=== PATIENT | male | born 1985 | race Caucasian/White ===

== ENCOUNTER 2024-04-21 20:04 | Emergency (ER) | payer MEDICARE, MEDICAID, SELFPAY ==
[2024-04-21 20:04] VITALS: BP 142/93; PULSE 95; RESP 18; TEMP 36.8; O2SAT 98; BMI 41.0
--- NOTE | 2024-04-21 20:05 | ED_ITS ---
<Statement entered by Hans Krause MD - 04/21/24 21:47> I was consulted by the [facility], and we discussed the complexity of the problems being addressed. I approved the treatment and management plan for this patient's care in the emergency department, thus performing a substantive portion of the medical decision making. Patient has abscess that was drained at bedside by [facility], he was given dalbavancin appropriately, he has hide mild hyponatremia of undetermined etiology that is not need inpatient workup at this time and he will follow-up on an outpatient basis. Hans Krause MD Discharge Plan Disposition Patient Disposition: Home, Self-Care Condition: Good Prescriptions Prescriptions: No Action citalopram 20 mg tablet 20 mg PO DAILY olanzapine 10 mg tablet 10 mg PO QHS risperidone [Risperdal] 3 mg tablet 3 mg PO BID doxycycline hyclate 100 MG capsule 100 mg PO BID Qty: 20 0RF mupirocin 22 GM ointment 1 applicatio TP BID Qty: 1 0RF Referrals Follow up/Referrals: Keyur Lockett DO [Staff Physician] - See instructions (Follow-up incision and drainage left proximal thigh) Activity Restrictions/Add. Instructions Additional Instructions/Restrictions: Please change her packing once a day. Please call tomorrow to make an appointment with Dr. Lockett for wound care follow-up. You may shower and bathe as normal. For any worsening signs or symptoms follow-up with your PCP return t o the ER as needed. Clinical Impressions Clinical Impression: Abscess of left thigh Instructions Patient Instructions: DI for Skin Abscess Print Language Print Language: Czech Discharge ED Provider: Hans Krause General Adult HPI General Chief complaint: Skin/Abscess/Foreign Body Stated complaint: spider bite Time Seen by Provider: 04/21/24 20:05 History of Present Illness HPI narrative: Patient presents for evaluation of a left proximal thigh abscess. Patient states that he does not know how it happened but he woke up with pain in the left side of his hip today. It does not bother him except when he lays on it . He denies fever chills hemoptysis hematochezia melena nausea vomiting diarrhea. He has full range of motion. Related Data Home Medications ?Medication ?Instructions ?Recorded ?Confirmed citalopram 20 mg tablet 20 mg PO DAILY 07/29/18 07/29/18 olanzapine 10 mg tablet 10 mg PO QHS 07/29/18 07/29/18 risperidone 3 mg tablet (Risperdal) 3 mg PO BID 07/29/18 07/29/18 Previous Rx's ?Medication ?Instructions ?Recorded doxycycline hyclate 100 mg capsule 100 mg PO BID #20 caps 07/25/18 mupirocin 2 % topical ointment 1 applicatio TP BID #1 tube 07/25/18 Allergies Allergy/AdvReac Type Severity Reaction Status Date / Time haloperidol (From Haldol) Allergy Verified 07/29/18 10:11 hydroxyzine (From Vistaril) Allergy Verified 07/29/18 10:11 lithium Allergy Verified 07/29/18 10:11 morphine Allergy Verified 07/29/18 10:11 quetiapine (From Seroquel) Allergy Verified 07/29/18 10:11 [facility] Disclaimer: The information contained in this section may have been updated after the patient was seen, as this information can be updated by other users. Social History Smoking Status: Current every day smoker tobacco type: cigarettes packs per day: 1 alcohol intake: never current occupational status: disabled Travel in the last 8 weeks: None Other Medical History Have you received the Flu Vaccine for this season: No Have you received the Pneumonia Vaccine: Yes ROS Obtained: Yes Systems reviewed as appropriate & no additional complaints except as documented Physical Exam General General appearance: alert and in no apparent distress Respiratory Respiratory exam: Present normal lung sounds bilaterally Cardiovascular Cardiovascular exam: Present regular rate Extremities Exam Extremities exam: Present full ROM Neurological Exam Neurological exam: Present alert, oriented X3 and CN II-XII intact Medical Decision Making Medical Records Medical records reviewed: Yes I reviewed the patient's medical records. Screening: Per USPSTF and CDC recommendations, given the prevalence of disease in our region, it is our hospital?s policy to screen for HIV and viral Hepatitis for all patients aged 18 and over and those with ongoing risk factors. [place] Inquiry Pt receiving controlled substance: No Vital Signs: 04/21/24 20:04 Temperature 98.2 F Temperature Source Oral Pulse Rate [Right] 95 H Respiratory Rate 18 Blood Pressure [Right Arm] 142/93 H Blood Pressure Mean [Right Arm] 109 02 Sat by Pulse Oximetry 98 Oxygen Delivery Method Room Air Lab Data Lab results reviewed: Yes I reviewed the patient's lab results. Orders (Tests/Meds): ED MEDICATIONS Discontinued Medications Generic Name Dose Route Start Last Admin Trade Name [place] PRN Reason Stop Dose Admin Dalbavancin 1,500 mg/ Dextrose 250 mls @ 500 mls/hr 04/21/24 20:19 IV 04/21/24 20:20 ONCE ONE Lidocaine HCl 20 ml 04/21/24 20:06 Lidocaine 1% 20ml Mdv SUBCUT 04/21/24 20:07 ONCE ONE ORDERS Category Date Time Status BMP [Basic Metabolic Panel] Stat Lab 04/21/24 20:39 Received CBC w/Auto Diff [Complete Blood Count Auto Diff] Stat Lab 04/21/24 20:39 Received HIV (1&2) Antibody Rapid Stat Lab 04/21/24 20:39 Received Hep C Ab with Reflex to RNA Stat Lab 04/21/24 20:39 Received Wound Culture and Gram Stain Routine Micro 04/21/24 20:39 Received Medical Decision Narrative: In summary patient is a 39-year-old male who presents to the emergency department for evaluation of superficial abscess. Patient is hemodynamically u jm arrival, afebrile. Patient has approximately 10 cm area of induration and erythema in his proximal lateral left hip. He has full range of motion at the no pain with range of motion neurovascular intact distally. There is a central area of eschar along with fluctuance underneath the eschar.. Differential diagnosis includes superficial abscess versus deep space abscess. Initial workup will be conducted with hematologic labs wound culture. Initial interventions include Dalvance after labs are back. I&D performed by myself with a #11 blade and approximately 5 cc of purulent material immediately drained upon entry with the blade. Wound packed with 1 inch plain gauze and dressing applied. Patient to be referred to Dr. Keyur Lockett for PCP and follow-up. Procedures Abscess I/D Site: lower extremity (Left lateral proximal thigh) Side (if applicable): left Local Anesthetic: lidocaine 1% Amount of anesthesia used (mL): 10 Technique: incised with #11 blade Amount of fluid expressed (mL): 5 Irrigation: No Packing used?: plain Critical Care Critical Care Time Critical Care Time: No
[2024-04-21 20:30] VITALS: BP 141/85; PULSE 80; O2SAT 97
[2024-04-21 21:02] LABS: Basophils # 0.1 K/mm3 (0-0.2); Basophils % 0.5 % (0.1-2.0); Eosinophils # 0.1 K/mm3 (0.0-0.4); Hematocrit 43.6 % (42.0-52.0); Hemoglobin 14.3 g/dL (14.1-18.0); Lymphocytes # 1.5 K/mm3 (0.7-4.5); Lymphocytes % 13.9 % (10-50); Mean Corpuscular HGB Conc 32.8 g/dL (31.8-35.4); Mean Corpuscular Hemoglobin 30.1 pg (27.0-31.2); Mean Corpuscular Volume 91.8 fl (80-94); Mean Platelet Volume 7.5 fl (7.4-10.4); Monocytes # 0.6 K/mm3 (0.1-1.0); Neutrophils # 8.5 K/mm3 (1.8-7.8); Neutrophils % 78.5 % (37.0-80.0); Platelet Count 157 K/mm3 (142-424); Red Blood Count 4.75 M/mm3 (4.60-6.20); Red Cell Distribution Width 14.2 % (11.5-17.5); White Blood Count 10.8 K/mm3 (4.8-10.8)
[2024-04-21 21:14] LABS: Chloride 103 mmol/L (98-107); Potassium 3.7 mmoL/L (3.5-5.1); Sodium 130 mmol/L (136-145)
[2024-04-21] MEDS: DALBAVANCIN HCL 1,500 MG in DEXTROSE 5 % IN WATER 250 ML 500 MG IV (21:14)
[2024-04-21] MEDS: LIDOCAINE 1% 20ML MDV 20 ML SUBCUT (21:15)
[2024-04-21 21:17] LABS: Anion Gap 4.7 mEq/L (5-15); Blood Urea Nitrogen 9 mg/dl (9-20); Calcium 9.3 mg/dl (8.4-10.2); Carbon Dioxide 26 mmol/L (22.0-30.0); Creatinine Clearance Estimated 225 mL/min (50-200); Estimated Glomerular Filt Rate 107 ml/min (>60); GFR (African American) 130 ML/MIN (>60); Glucose 107 mg/dl (74-100)
[2024-04-21 22:02] VITALS: BP 148/105; PULSE 108; RESP 20; TEMP 37.1; O2SAT 97
[2024-04-21 22:14] VITALS: PULSE 98; O2SAT 99
[2024-04-22 11:13] LABS: HIV Combo NEGATIVE (Negative)
[2024-04-23 07:10] LABS: HCV Ab Non Reactive (Non Reactive)
--- NOTE | 2024-04-25 09:47 | PC.NURSE ---
wound culture discussed with , pt given wilman in er, no new orders
== END 2024-04-21 22:14 | disposition home or self-care (01) ==
PROVIDERS: Physician Assistant; Emergency Provider Emergency Medicine; PCP Nurse Practitioner Acute Care
DX: L02.416 Cutaneous abscess of left lower limb (principal); E87.1 Hypo-osmolality and hyponatremia; M25.552 Pain in left hip
CPT/HCPCS: 10060; 80048; 85025; 86803; 87070; 87077; 87186; 87205; 87389; 96374; 99283; J0875; J7060